=== PATIENT | male | born 1955 | race Native Hawaiian/Other Pacific Islander ===

== ENCOUNTER 2017-12-23 10:00 | Outpatient (CLI) | payer OTHER ==
[~2017-12-23 10:00] MED LIST: ACID REDUCER150 MG PO; ALBU90AE13 INH; AMLO5TAB PO; ASPIRIN 8181 MG PO; GLIP10TA55 PO; LIPITOR40 MG PO; METO25TA4 PO; TIOTCAP2 INH
[2017-12-23 10:24] LABS: PLATELET COUNT 185 K/uL (142-355)
[2017-12-23 10:39] LABS: POTASSIUM 4.5 mmol/L (3.6-5.2)
== END 2017-12-23 19:32 | disposition home or self-care (01) ==
LOC: LABW 10:00
PROVIDERS: Specialist
DX: I10 Essential (primary) hypertension (principal); I25.10 Atherosclerotic heart disease of native coronary artery without angina pectoris; R53.83 Other fatigue
CPT/HCPCS: 36415; 80048; 85027

== ENCOUNTER 2018-09-24 10:02 | Emergency (ER) | payer OTHER ==
[~2018-09-24] VITALS: Ht 175.3 cm; Wt 79.4 kg
[2018-09-24 10:16] VITALS: TEMP 98.1
[2018-09-24 10:47] LABS: PLATELET COUNT 171 K/uL (142-355)
[2018-09-24 10:56] LABS: POTASSIUM 4.4 mmol/L (3.6-5.2); SODIUM 137 mmol/L (136-145)
[2018-09-24 11:01] LABS: PARTIAL THROMBOPLASTIN TIME 28.8 SECONDS (24.5-33.6)
[2018-09-24 12:40] VITALS: BP 109/67
== END 2018-09-24 13:05 | disposition home or self-care (01) ==
LOC: ED 10:02
PROVIDERS: Hospitalist
DX: J44.1 Chronic obstructive pulmonary disease with (acute) exacerbation (principal); J40 Bronchitis, not specified as acute or chronic
CPT/HCPCS: 36415; 80053; 82550; 83880; 84484; 85027; 85610; 85730; 94664; 96365; 96375; 99284; J0696; J2930

== ENCOUNTER 2019-10-10 20:52 | Emergency (ER) | payer OTHER ==
[~2019-10-10] VITALS: Ht 175.3 cm; Wt 84.8 kg
[2019-10-10 22:06] LABS: PLATELET COUNT 155 K/uL (142-355)
[2019-10-10 22:15] LABS: POTASSIUM 4.1 mmol/L (3.6-5.2)
[2019-10-11 02:47] VITALS: BP 126/80; TEMP 98.3
== END 2019-10-11 02:47 | disposition home or self-care (01) ==
LOC: ED 20:52
PROVIDERS: Emergency Medicine
DX: R10.84 Generalized abdominal pain (principal)
CPT/HCPCS: 80053; 81000; 82150; 83690; 85027; 96374; 99284; J1885; Q9963

== ENCOUNTER 2020-06-18 19:10 | Emergency (ER) | payer OTHER ==
[~2020-06-18] VITALS: Ht 175.3 cm; Wt 82.6 kg
[2020-06-18 19:10] VITALS: TEMP 98.2
[2020-06-18 19:57] LABS: PLATELET COUNT 223 K/uL (142-355)
[2020-06-18 20:03] LABS: POTASSIUM 4.2 mmol/L (3.6-5.2); SODIUM 140 mmol/L (136-145)
[2020-06-18 20:08] LABS: PARTIAL THROMBOPLASTIN TIME 27.4 SECONDS (24.5-33.6)
[2020-06-19 07:28] VITALS: BP 124/68
== END 2020-06-19 07:28 | disposition home or self-care (01) ==
LOC: ED 19:14
PROVIDERS: Family Medicine
DX: J44.1 Chronic obstructive pulmonary disease with (acute) exacerbation (principal); Z20.828 Contact with and (suspected) exposure to other viral communicable diseases; F17.210 Nicotine dependence, cigarettes, uncomplicated
CPT/HCPCS: 36415; 80053; 82550; 82805; 83880; 84484; 85027; 85379; 85610; 85730; 87635; 93005; 94664; 96365; 96375; 99284; J2405; J2550; J2930; Q9963; U0003

== ENCOUNTER 2021-10-14 20:29 | Emergency (ER) | payer OTHER ==
[~2021-10-14] VITALS: Ht 175.3 cm; Wt 77.1 kg
[2021-10-14 20:40] VITALS: TEMP 99.5
[2021-10-14] MEDS ORDERED: ACID REDUCER200 MG PO (22:09)
[2021-10-14] MEDS ORDERED: TAMS0.4C PO (22:10)
[2021-10-14] MEDS ORDERED: METFORMIN HYD1000 M2 PO (22:10)
[2021-10-14] MEDS ORDERED: NEURONTIN800 MG PO (22:11)
[2021-10-14] MEDS ORDERED: ANORO ELLIPTA 61 AER (22:12)
[2021-10-14 22:17] LABS: PLATELET COUNT 255 K/uL (142-355)
[2021-10-14 22:27] LABS: POTASSIUM 4.9 mmol/L (3.6-5.2)
[2021-10-15 02:47] VITALS: BP 126/77
== END 2021-10-15 02:47 | disposition short-term general hospital (02) ==
LOC: ED 20:29
PROVIDERS: Emergency Medicine Emergency Medical Services
DX: I21.4 Non-ST elevation (NSTEMI) myocardial infarction (principal); K92.2 Gastrointestinal hemorrhage, unspecified; I10 Essential (primary) hypertension; F17.210 Nicotine dependence, cigarettes, uncomplicated; Z11.52 Encounter for screening for COVID-19
CPT/HCPCS: 36415; 80053; 80320; 82150; 82272; 83605; 83690; 83735; 84484; 85027; 85610; 85730; 87040; 87502; 87635; 93005; 96360; 96365; 96375; 96376; 99285; J0696; J2405; J3490; U0003

== ENCOUNTER 2022-11-30 11:59 | Observation (INO) | payer OTHER ==
[~2022-11-30] VITALS: Ht 167.6 cm; Wt 63.3 kg
[~2022-11-30 11:59] MED LIST changes: +ACID REDUCER200 MG PO; -AMLO5TAB PO; +AMLODIPINE BESYLATE PO; +ANORO ELLIPTA 61 AER INH; -GLIP10TA55 PO; +GLIPIZIDE PO; -LIPITOR40 MG PO; +LIPITOR80 MG PO; +METF100038 PO; +METO25TA2 PO; -METO25TA4 PO; +NEURONTIN800 MG PO; +TAMS0.4C PO
[2022-11-30 12:23] VITALS: BP 156/72; TEMP 98.2
[2022-11-30 12:33] LABS: PLATELET COUNT 211 K/uL (142-355)
[2022-11-30 13:17] LABS: POTASSIUM 3.4 mmol/L (3.6-5.2)
[2022-11-30 16:23] VITALS: BP 151/77; TEMP 97.8
[2022-11-30 17:15] VITALS: BP 151/77; TEMP 97.8; Ht 167.6 cm; Wt 63.3 kg
[2022-11-30] MEDS ORDERED: ISOS30TA17 PO (19:08)
[2022-11-30] MEDS ORDERED: LYRICA 100 MG100 MG PO (19:08)
[2022-11-30] MEDS ORDERED: LATA0.00 OPTH (19:08)
[2022-11-30] MEDS ORDERED: CLOP75TA2 PO (19:09)
[2022-11-30 20:00] VITALS: BP 136/78; TEMP 98.3
[2022-12-01] VITALS: BP 144/74; TEMP 99.4
[2022-12-01 03:53] VITALS: BP 129/61; TEMP 97.8
[2022-12-01 07:53] VITALS: BP 128/69; TEMP 98.3
[2022-12-01 08:46] LABS: PLATELET COUNT 177 K/uL (142-355)
[2022-12-01 08:57] LABS: POTASSIUM 3.6 mmol/L (3.6-5.2)
[2022-12-01 11:55] VITALS: BP 139/77; TEMP 98.1
[2022-12-01] MEDS ORDERED: KETOROLAC10 MG PO (14:34)
== END 2022-12-01 15:32 | disposition home or self-care (01) ==
LOC: ED 11:59 → MED/SURG 13:58
PROVIDERS: Internal Medicine Endocrinology, Diabetes & Metabolism; ADMIT Family Medicine; ATTEND Internal Medicine
DX: M62.82 Rhabdomyolysis (principal); R41.82 Altered mental status, unspecified; S22.32XA Fracture of one rib, left side, initial encounter for closed fracture; W19.XXXA Unspecified fall, initial encounter; E11.9 Type 2 diabetes mellitus without complications; I10 Essential (primary) hypertension; J44.9 Chronic obstructive pulmonary disease, unspecified
CPT/HCPCS: 80048; 80053; 80307; 80320; 81000; 82550; 83690; 84484; 85027; 94664; 94760; 96361; 96367; 96372; 96374; 96375; 96376; 99221; 99284; G0378; J1200; J1650; J1885; J2060; J2270